=== PATIENT | male | born 1965 | race African-American/Black ===

== ENCOUNTER 2019-08-16 09:49 | Inpatient (IN) | payer OTHER ==
[2019-08-16] VITALS (7 sets, daily range): BP systolic 128–149; BP diastolic 84–99
[~2019-08-16] VITALS: Ht 177.8 cm; Wt 82.6 kg
[2019-08-16] MEDS ORDERED: ASPIRIN 81MG TABLET PO ONE (10:15)
[2019-08-16 10:49] LABS: HEMATOCRIT. 49.1 % (42.0-52.0); HEMOGLOBIN. 16.8 g/dL (14.0-18.0); MEAN CORPUSCULAR HEMOGLOBIN 34.1 pg (28.0-32.0); MEAN CORPUSCULAR VOLUME 99.9 fL (80.0-94.0); MEAN PLATELET VOLUME 11.3 fl (7.4-10.4); PLATELET 117 x1000/uL (130-400); RED BLOOD CELL COUNT 4.91 mill/uL (4.7-6.1); RED CELL DISTRIBUTION WIDTH 13.8 % (11.6-14.6)
[2019-08-16 10:56] LABS: CHLORIDE 106 mEq/L (98-107)
[2019-08-16 10:58] LABS: INR 1.1; PROTHROMBIN TIME 11.1 sec (9.6-11.0)
[2019-08-16 11:36] LABS: PLATELET ESTIMATE NORMAL
[2019-08-16] MEDS ORDERED: METO25TA6 PO (12:47)
[2019-08-16] MEDS ORDERED: GABA-529 PO (12:47)
[2019-08-16] MEDS ORDERED: ACETAMINOPHEN 325MG TABLET PO PRN (13:15)
[2019-08-16] MEDS ORDERED: MORPHINE SULFATE 4 MG/ML CPJ (NOT FOR IM USE) IV PRN (13:15)
[2019-08-16] MEDS ORDERED: NITROGLYCERIN 0.4MG TABLET SL SL PRN (13:15)
[2019-08-16] MEDS ORDERED: CLONIDINE 0.1MG TABLET PO PRN (13:15)
[2019-08-16] MEDS ORDERED: ZOLPIDEM TARTRATE 5MG TABLET PO PRN (13:15)
[2019-08-16] MEDS ORDERED: DOCUSATE SODIUM 100MG CAPSULE PO PRN (13:15)
[2019-08-16] MEDS ORDERED: TRAMADOL 50MG TABLET PO PRN (13:15)
[2019-08-16] MEDS ORDERED: LORAZEPAM 0.5MG TABLET PO PRN (13:15)
[2019-08-16] MEDS ORDERED: GUAIFENESIN 200MG/10ML SUGAR FREE UDC PO PRN (13:15)
[2019-08-16] MEDS ORDERED: DIPHENHYDRAMINE 50MG/ML VIAL IV PRN (13:15)
[2019-08-16] MEDS ORDERED: ONDANSETRON HCL 4MG/2ML INJ IV PRN (13:15)
[2019-08-16] MEDS ORDERED: IPRATROPIUM/ALBUTEROL 0.5-3(2.5)MG/3ML NEB HHN PRN (13:15)
[2019-08-16] MEDS ORDERED: MAGNESIUM/ALUMINUM HYDROXIDE/SIMETHICONE 30ML UDC PO PRN (13:15)
[2019-08-16] MEDS: ENOXAPARIN 80MG/0.8ML SYR SUBCUT SCH (14:49)
[2019-08-16 16:24] LABS: CREATINE KINASE MB FRACTION 44.3 ng/mL (0.5-3.6)
[2019-08-16] MEDS: FAMOTIDINE 20MG TABLET PO SCH (22:34)
[2019-08-16 23:37] LABS: CREATINE KINASE MB FRACTION 23.6 ng/mL (0.5-3.6)
[2019-08-17] VITALS (15 sets, daily range): BP systolic 125–175; BP diastolic 80–107
[2019-08-17] MEDS: ENOXAPARIN 80MG/0.8ML SYR SUBCUT SCH ×3 (00:59→20:30)
[2019-08-17] MEDS ORDERED: ASPIRIN 325MG EC TABLET PO SCH (09:00)
[2019-08-17] MEDS: FAMOTIDINE 20MG TABLET PO SCH ×2 (09:58→20:30)
[2019-08-17] MEDS ORDERED: METOPROLOL TARTRATE 50MG TABLET PO SCH (21:00)
[2019-08-18] VITALS: BP 121/71
[2019-08-18 02:00] VITALS: BP 114/76
[2019-08-18 03:30] VITALS: BP 130/86
== END 2019-08-18 05:15 | disposition short-term general hospital (02) | DRG 281 ==
LOC: ER 10:05 → 3WST 10:54 → EDBEDREQTM 10:57 → EDBEDREQ 10:57 → EDBEDREQSVC 10:57 → EDBEDREQ 10:59 → EDBEDREQTM 10:59 → ENRESERV 11:28
PROVIDERS: ADMIT Internal Medicine; ATTEND Internal Medicine
PROC: 4B02XTZ Measurement of Cardiac Defibrillator, External Approach (ICD-10-PCS; principal; 2019-08-17)
DX: I21.4 Non-ST elevation (NSTEMI) myocardial infarction (principal); I42.2 Other hypertrophic cardiomyopathy; I25.10 Atherosclerotic heart disease of native coronary artery without angina pectoris; Z95.810 Presence of automatic (implantable) cardiac defibrillator; I10 Essential (primary) hypertension; E78.5 Hyperlipidemia, unspecified; D69.6 Thrombocytopenia, unspecified; I48.91 Unspecified atrial fibrillation; E78.00 Pure hypercholesterolemia, unspecified; Z79.02 Long term (current) use of antithrombotics/antiplatelets
CPT/HCPCS: 36415; 71045; 80061; 80320; 82550; 82553; 83036; 83880; 84484; 93005; 93306; 99291; J1650; G0480

== ENCOUNTER 2022-05-22 19:48 | Inpatient (IN) | payer OTHER ==
[~2022-05-22] VITALS: Ht 177.8 cm; Wt 91.6 kg
[~2022-05-22 19:48] MED LIST: GABA-529 PO; METO25TA6 PO
[2022-05-22 22:18] LABS: BASOPHILS % 0.7 % (0.0-2.0); EOSINOPHILS % 1.6 % (0.0-5.0); HEMATOCRIT. 44.9 % (42.0-52.0); HEMOGLOBIN. 14.7 g/dL (14.0-18.0); LYMPHOCYTES % 28.3 % (20.0-50.0); MEAN CORPUSCULAR HEMOGLOBIN 33.1 pg (28.0-32.0); MEAN CORPUSCULAR VOLUME 100.8 fL (80.0-94.0); MEAN PLATELET VOLUME 11.1 fl (7.4-10.4); MONOCYTES % 13.4 % (2.0-8.0); PLATELET 143 x1000/uL (130-400); RED BLOOD CELL COUNT 4.45 mill/uL (4.7-6.1); RED CELL DISTRIBUTION WIDTH 14.5 % (11.6-14.6)
[2022-05-22 22:25] LABS: CHLORIDE 109 mEq/L (98-107)
[2022-05-22] MEDS ORDERED: ASPIRIN 325MG EC TABLET PO ONE (23:15)
[2022-05-23] MEDS ORDERED: ONDANSETRON HCL 4MG/2ML INJ IV PRN (05:45)
[2022-05-23] MEDS ORDERED: ACETAMINOPHEN 325MG TABLET PO PRN (05:45)
[2022-05-23] MEDS ORDERED: DOCUSATE SODIUM 100MG CAPSULE PO PRN (05:45)
[2022-05-23] MEDS ORDERED: HYDROCODONE/ACETAMINOPHEN 5/325MG TABLET PO PRN (05:45)
[2022-05-23] MEDS ORDERED: MAGNESIUM/ALUMINUM HYDROXIDE/SIMETHICONE 30ML UDC PO PRN (05:45)
[2022-05-23] MEDS: AMLODIPINE 10MG TABLET PO SCH ×2 (07:06→09:55)
[2022-05-23] MEDS ORDERED: DABIGATRAN ETEXILATE 150 MG CAPSULE PO SCH (07:15)
[2022-05-23] MEDS ORDERED: BISOPROLOL FUMARATE 5 MG TABLET PO SCH (07:15)
[2022-05-23] MEDS: ENOXAPARIN 40MG/0.4ML SYR SUBCUT SCH (08:11)
[2022-05-23 08:30] VITALS: BP 126/79
[2022-05-23] MEDS ORDERED: ALLO100T PO (10:34)
[2022-05-23] MEDS ORDERED: COLC0.6C3 PO (10:34)
[2022-05-23] MEDS ORDERED: DABI150C PO (10:34)
[2022-05-23] MEDS ORDERED: BISO10TA11 PO (10:34)
[2022-05-23] MEDS ORDERED: GABA-532 PO (10:34)
[2022-05-23] MEDS ORDERED: MAGN64TA7 PO (10:34)
[2022-05-23 12:00] VITALS: BP 131/78
[2022-05-23] MEDS: ASPIRIN 81MG EC TABLET PO SCH (12:33)
[2022-05-23] MEDS: METOPROLOL TARTRATE 25MG TABLET PO SCH ×2 (12:34→21:47)
[2022-05-23 16:00] VITALS: BP 126/82
[2022-05-23] MEDS: AMLODIPINE 2.5MG TABLET PO SCH (16:48)
[2022-05-23] MEDS ORDERED: NALOXONE HCL 0.4MG/ML VIAL IV PRN (18:30)
[2022-05-23 20:30] VITALS: BP 136/93
[2022-05-24 00:41] VITALS: BP 125/86
[2022-05-24 04:00] VITALS: BP 110/64
[2022-05-24 07:15] LABS: HEMOGLOBIN. 16.5 g/dL (14.0-18.0); MEAN CORPUSCULAR HEMOGLOBIN 33.6 pg (28.0-32.0); MEAN CORPUSCULAR VOLUME 99.7 fL (80.0-94.0); MEAN PLATELET VOLUME 11.3 fl (7.4-10.4); PLATELET 159 x1000/uL (130-400); RED BLOOD CELL COUNT 4.92 mill/uL (4.7-6.1); RED CELL DISTRIBUTION WIDTH 14.1 % (11.6-14.6)
[2022-05-24 07:24] LABS: CHLORIDE 106 mEq/L (98-107)
[2022-05-24 07:36] LABS: HDL CHOLESTEROL 51 mg/dL (40-59); LDL CHOLESTEROL 121 mg/dL (5-100)
[2022-05-24 08:00] VITALS: BP 127/87
[2022-05-24] MEDS: ASPIRIN 81MG EC TABLET PO SCH (08:21)
[2022-05-24] MEDS: ENOXAPARIN 40MG/0.4ML SYR SUBCUT SCH (08:21)
[2022-05-24] MEDS: METOPROLOL TARTRATE 25MG TABLET PO SCH (08:21)
[2022-05-24] MEDS: AMLODIPINE 2.5MG TABLET PO SCH (08:21)
[2022-05-24 11:19] VITALS: BP 132/96
[2022-05-24 12:00] VITALS: BP 132/96
[2022-05-24 13:49] LABS: PLATELET ESTIMATE NORMAL
[2022-05-24] MEDS ORDERED: ATORVASTATIN CALCIUM 40MG TABLET PO SCH (21:00)
== END 2022-05-24 12:00 | disposition home or self-care (01) | DRG 315 ==
LOC: ER 19:48 → 7WST 05-23 01:12 → ENRESERV 05-23 07:37
PROVIDERS: ADMIT Hospitalist; ATTEND Hospitalist
DX: T82.897A Other specified complication of cardiac prosthetic devices, implants and grafts, initial encounter (principal); I42.2 Other hypertrophic cardiomyopathy; E78.5 Hyperlipidemia, unspecified; I10 Essential (primary) hypertension; I25.5 Ischemic cardiomyopathy; F12.90 Cannabis use, unspecified, uncomplicated; I44.0 Atrioventricular block, first degree; R77.8 Other specified abnormalities of plasma proteins; I45.10 Unspecified right bundle-branch block; Y90.9 Presence of alcohol in blood, level not specified; Z79.01 Long term (current) use of anticoagulants; Z82.49 Family history of ischemic heart disease and other diseases of the circulatory system; Z87.891 Personal history of nicotine dependence; Z95.810 Presence of automatic (implantable) cardiac defibrillator; Z72.89 Other problems related to lifestyle; Y84.8 Other medical procedures as the cause of abnormal reaction of the patient, or of later complication, without mention of misadventure at the time of the procedure; Y92.89 Other specified places as the place of occurrence of the external cause
CPT/HCPCS: 36415; 71045; 80053; 80061; 83735; 83880; 84443; 84484; 85025; 93005; 93306; 99285; J1650